=== PATIENT | female | born 1935 | race Caucasian/White ===

== ENCOUNTER 2016-11-13 13:24 | Outpatient (CLI) | payer MEDICARE, BC ==
[~2016-11-13] VITALS: Ht 157.5 cm; Wt 65.9 kg
[~2016-11-13 13:24] MED LIST: AMANTADINE HCL100 M1 PO; AMANTADINE100 MG PEG; APLISOL5 TU/0.1 M ID; ASPI325T6 PO; ASPIRIN 32325 MG/TAB PO; CALTRATE 600 +1 TAB PO; CELEXA; CELEXA 20MG20 MG/TAB PO; CELEXA10 MG/5 ML PEG; CELEXA20 MG PEG; CELEXA20 MG PO; CLARITIN 1010 MG/TAB PO; COLACE 100100 MG/CAP PO; COLACE100 MG PO; COUMADIN; DEBROX; DULCOLAX10 MG RC; FORTAMET1000 MG PO; FOSAMAX PO; IMODIUM AD1 MG/5 ML PO; KEPPRA100 MG/ML PEG; KEPPRA500 MG PO; LABETALOL100 MG PO; LANTUS100 U/ML SQ; LEVOTHYROXIN0.125 MG PO; LIPITOR 10MG10 MG PO; MACROBID 1100 MG/CAP PO; MILK OF MA400 MG/51 PO; MYLANTA 150 ML150 M1 PO; MYLANTA 150 ML150 ML PO; NEXIUM40 MG PO; NITROQUICK0.4 MG SL; NITROSTAT0.4 MG SL; PHENERGAN 25 TA25 MG; PROMETHAZINE12.5 M5 PEG; PROTONIX 40MG T40 MG PO; PROTONIX40 MG PO; RECLAST5 MG/100 M IV; REGLAN 5MG T5 MG/TAB PEG; REGLAN 5MG T5 MG/TAB PO; REGLAN5 MG/ML PEG; SYNTHROID PO; SYNTHROID0.1 MG PO; SYNTHROID0.1 MG/TAB PO; SYNTHROID0.125 MG PO; TRANDATE100 MG PO; TRANDATE5 MG/ML IV; TYLENOL 325MG325 MG PO; TYLENOL SU650 MG/SUP RC; VITAMIN D31000 IU PO; VITAMIN D32000 IU PO; ZOCOR 20MG20 MG PO; ZOFRAN ODT4 MG PEG; ZOFRAN4 M1 PEG; ZOFRAN4 M1 PO; antidepressant
[2016-11-13 13:57] VITALS: BP 104/43; PULSE 65; TEMP 97.4
== END 2016-11-13 14:32 | disposition home or self-care (01) ==
LOC: EUO 13:24
DX: M81.8 Other osteoporosis without current pathological fracture (principal)
CPT/HCPCS: J3489

== ENCOUNTER → 2017-02-17 | Outpatient (CLI) | payer MEDICARE, BC | LOC: COL.VAS 12:07 | DX: M79.662 Pain in left lower leg (principal) ==

== ENCOUNTER → 2021-03-12 | Outpatient (CLI) | payer MEDICARE, BC ==
[~2021-03-12] MED LIST changes: +CORDARONE200 MG/TAB PO; +LIPITOR 40MG TA40 MG PO; +NAMENDA5 MG PO
[2021-03-12 15:25] LABS: COLLECTION METHOD CATHETER
[2021-03-12 15:27] LABS: HEMATOCRIT 43.8 % (37.0-47.0); MEAN CELL VOLUME 96 fl (80.0-100.0); MEAN CORPUSCULAR HEMOGLOBIN 31 pg (27.0-31.0); MEAN CORPUSCULAR HGB CONC 32 g/dl (33.0-37.0); MEAN PLATELET VOLUME 11.7 fl (7.4-10.4); PLATELET COUNT 192 K/mm3 (130-400); RED BLOOD COUNT 4.56 M/mm3 (4.10-5.30); REDCELL DISTRIBUTION WIDTH-CV 13.3 % (11.5-14.5)
[2021-03-12 15:38] LABS: MUCOUS Present /lpf; PH 5 (5-8); URINE APPEARANCE Hazy; URINE BACTERIA Rare /hpf; URINE BILIRUBIN Negative (NEGATIVE); URINE BLOOD Negative (NEGATIVE); URINE COLOR Yellow; URINE GLUCOSE Negative (NEGATIVE); URINE KETONE Negative (NEGATIVE); URINE LEUKOCYTE ESTERASE Trace (NEGATIVE); URINE NITRATE Negative (NEGATIVE); URINE PROTEIN(semi-quant) Negative (NEGATIVE); URINE RBC 0-2 /hpf
[2021-03-12 15:46] LABS: ALBUMIN 3.7 gm/dL (3.5-5.0); BILIRUBIN,TOTAL 0.4 mg/dL (0.0-1.0); CALCIUM 9.2 mg/dL (8.4-10.2); CREATININE, serum 0.9 (0.52-1.25); TOTAL PROTEIN 7.3 gm/dL (6.4-8.2)
== END ==
LOC: COL.LAB 14:24
PROVIDERS: Family Medicine
DX: R53.1 Weakness (principal); R53.83 Other fatigue

== ENCOUNTER → 2021-07-26 | Outpatient (CLI) | payer MEDICARE, BC ==
[~2021-07-26] MED LIST changes: +MASON NATURAL2000 IU PO; +MELATONIN5 M1 SL; +NAMENDA 10MG TA10 MG PO; +SYNTHROID0.075 MG/T PO; +SYNTHROID0.088 MG/T PO
[2021-07-26 16:17] LABS: BASO # 0.1 K/mm3 (0.0-0.2); EOS # 0.3 K/mm3 (0.0-0.7); EOS % 3.6 % (0-4.0); GRAN # 4.9 K/mm3 (1.4-6.5); GRAN % 60.8 % (42.2-75.2); HEMATOCRIT 45.5 % (37.0-47.0); HEMOGLOBIN 14.8 g/dl (12.5-16.0); LYMPH % 24.9 % (20.0-51.0); MEAN CELL VOLUME 93 fl (80.0-100.0); MEAN CORPUSCULAR HEMOGLOBIN 30 pg (27.0-31.0); MEAN CORPUSCULAR HGB CONC 33 g/dl (33.0-37.0); MEAN PLATELET VOLUME 11.6 fl (7.4-10.4); MONO # 0.7 K/mm3 (0.1-0.6); MONO % 9.1 % (1.7-9.3); PLATELET COUNT 207 K/mm3 (130-400); RED BLOOD COUNT 4.92 M/mm3 (4.10-5.30); REDCELL DISTRIBUTION WIDTH-CV 13.8 % (11.5-14.5)
[2021-07-26 16:33] LABS: ALANINE AMINOTRANSFERASE 18 U/L (0-55); ALBUMIN 3.5 gm/dL (3.4-4.8); ALKALINE PHOSPHATASE 70 U/L (40-150); ANION GAP 11 mmol/L (7-16); AST,SGOT 17 U/L (5-34); BILIRUBIN,TOTAL 0.5 mg/dL (0.2-1.2); BLOOD UREA NITROGEN 14 mg/dL (10-20); CALCIUM 9.3 mg/dL (8.4-10.2); CARBON DIOXIDE 27 mmol/L (23-31); CHLORIDE 102 mmol/L (98-107); CREATININE, serum 0.93 mg/dL (0.57-1.11); GLUCOSE 85 mg/dL (70-99); POTASSIUM 4.6 mmol/L (3.5-4.5); SODIUM 140 mmol/L (136-145)
[2021-07-26 16:52] LABS: THYROID STIMULATING HORMONE 7.738 uIU/mL (0.350-4.940)
[2021-07-26 16:53] LABS: TROPONIN-I < 0.010 ng/mL (0.00-0.033)
== END ==
LOC: COL.RAD 15:00
PROVIDERS: Internal Medicine
DX: S06.2X9A Diffuse traumatic brain injury with loss of consciousness of unspecified duration, initial encounter (principal); G31.9 Degenerative disease of nervous system, unspecified; Z98.890 Other specified postprocedural states; Z98.2 Presence of cerebrospinal fluid drainage device

== ENCOUNTER 2021-09-08 11:34 | Observation (INO) | payer MEDICARE, BC ==
[~2021-09-08] VITALS: Ht 154.9 cm; Wt 57.2 kg
[~2021-09-08 11:34] MED LIST changes: -MASON NATURAL2000 IU PO; -MELATONIN5 M1 SL; -NAMENDA 10MG TA10 MG PO; -SYNTHROID0.075 MG/T PO; -SYNTHROID0.088 MG/T PO
[2021-09-08 12:27] LABS: BASO # 0.1 K/mm3 (0.0-0.2); BASO % 0.7 % (0.0-2.0); EOS # 0.1 K/mm3 (0.0-0.7); EOS % 1.1 % (0-4.0); GRAN # 5.3 K/mm3 (1.4-6.5); GRAN % 73.8 % (42.2-75.2); HEMOGLOBIN 14.6 g/dl (12.5-16.0); LYMPH # 1.1 K/mm3 (1.2-3.4); LYMPH % 14.9 % (20.0-51.0); MEAN CELL VOLUME 92 fl (80.0-100.0); MEAN CORPUSCULAR HEMOGLOBIN 31 pg (27.0-31.0); MEAN CORPUSCULAR HGB CONC 33 g/dl (33.0-37.0); MEAN PLATELET VOLUME 11.7 fl (7.4-10.4); MONO # 0.7 K/mm3 (0.1-0.6); MONO % 9.1 % (1.7-9.3); PLATELET COUNT 189 K/mm3 (130-400); RED BLOOD COUNT 4.76 M/mm3 (4.10-5.30); REDCELL DISTRIBUTION WIDTH-CV 13.6 % (11.5-14.5)
[2021-09-08 12:43] LABS: ALBUMIN 3.4 gm/dL (3.4-4.8); BILIRUBIN,TOTAL 0.7 mg/dL (0.2-1.2); CALCIUM 8.9 mg/dL (8.4-10.2); CREATININE, serum 0.86 mg/dL (0.57-1.11); POTASSIUM 3.7 mmol/L (3.5-4.5); TOTAL PROTEIN 6.7 gm/dL (6.2-8.1)
[2021-09-08 13:24] LABS: COLLECTION METHOD CLEAN CATCH
[2021-09-08 13:36] LABS: MUCOUS Present (NOT PRESENT); PH 5 (5-8); SQUAMOUS EPITHELIAL 0-2 /hpf (0-10); URINE APPEARANCE Clear (CLEAR/HAZY); URINE BACTERIA None Seen (NONE SEEN); URINE BILIRUBIN Negative (NEGATIVE); URINE BLOOD 2+ (NEGATIVE); URINE COLOR Yellow (YELLOW); URINE GLUCOSE Negative (NEGATIVE); URINE KETONE Negative (NEGATIVE); URINE LEUKOCYTE ESTERASE Negative (NEGATIVE); URINE NITRATE Negative (NEGATIVE); URINE PROTEIN(semi-quant) Negative (NEGATIVE)
[2021-09-08] MEDS ORDERED: CORDARONE200 MG/TAB PO (17:59)
[2021-09-08] MEDS ORDERED: SYNTHROID0.075 MG/T PO (18:01)
[2021-09-08] MEDS ORDERED: NAMENDA 10MG TA10 MG PO (18:01)
[2021-09-08] MEDS ORDERED: SYNTHROID0.088 MG/T PO (18:02)
[2021-09-08] MEDS ORDERED: MASON NATURAL2000 IU PO (18:02)
[2021-09-08] MEDS ORDERED: MELATONIN5 M1 SL (18:04)
[2021-09-08 21:55] VITALS: BP 171/63; PULSE 69; TEMP 98.1
--- NOTE | 2021-09-08 23:07 | NUR ---
PT ARRIVES TO MEDICAL FLOOR AT ABOUT 2140 BY ED STAFF VIA BED WITH BEDSIDE. PT A/OX2, PLESANTLY CONFUSED AND DISORIENTED AND ABLE TO FOLLOW SIMPLE COMMANDS AND WAS ASSISTING STAFF IN BED TRANSFER AND WAS ABLE TO TURN FROM SIDE TO SIDE WITH ASSISTANCE. PT REMAINS WEAK WITH AN UNSTEADY GAIT. PT NPO AND N.S INFUSING AT 75CC/HR TO RFA IV. ASSESMENT COMPLETE. PTS REMAINED BEDSIDE TO COMPLETE ADMISSION WITH THIS NURSE. THIS NURSE CONDUCTED MED REC WITH PT'S AND THIS NURSE REMINDED HIM TO BRING MED LIST TO PLACE IN PTS CHART. PT VERBALIZED UNDERSTANDING. PT HYPERTENSIVE, AFEBRILE AND REPORTS NO PAIN. PT ORIENTED TO ROOM, HOSPITAL POLICY. POC DISCUSSED WITH PTS . PTS VERBALIZED UNDERSTANDING. ALL QUESTIONS/CONCERNS ANSWERED AT THIS TIME. BED LOW. BED ALARM ON. PT WEARING YELLOW GOWN AND VISIBLE TO NURSES STATION. ALL NEEDS MET AT THIS TIME. NURSE WILL CONTINUE TO MONITOR.
[2021-09-09 05:42] VITALS: BP 165/58; PULSE 64; TEMP 98.5
[2021-09-09 06:41] VITALS: BP 165/58; PULSE 64; TEMP 98.5
[2021-09-09 06:44] LABS: BASO % 0.5 % (0.0-2.0); EOS # 0.1 K/mm3 (0.0-0.7); EOS % 1.4 % (0-4.0); GRAN # 6.1 K/mm3 (1.4-6.5); GRAN % 75.3 % (42.2-75.2); HEMATOCRIT 45.2 % (37.0-47.0); LYMPH # 1.1 K/mm3 (1.2-3.4); LYMPH % 13.4 % (20.0-51.0); MEAN CELL VOLUME 93 fl (80.0-100.0); MEAN CORPUSCULAR HEMOGLOBIN 31 pg (27.0-31.0); MEAN CORPUSCULAR HGB CONC 33 g/dl (33.0-37.0); MEAN PLATELET VOLUME 12.1 fl (7.4-10.4); MONO # 0.7 K/mm3 (0.1-0.6); PLATELET COUNT 194 K/mm3 (130-400); RED BLOOD COUNT 4.88 M/mm3 (4.10-5.30); REDCELL DISTRIBUTION WIDTH-CV 13.4 % (11.5-14.5)
--- NOTE | 2021-09-09 06:46 | NUR ---
ALL NEEDS MET THIS NIGHT. N/S CONTNUES TO INFUSE AT 75CC/HR TO RFA IV. PT IN YELLOW GOWN. BED ALARM ON. CALL LIGHT [facility]. PT VISIBLE TO NURSES STATION.
--- NOTE | 2021-09-09 07:14 | NUR ---
Patient laying in bed, awake and alert to name, but confused. VSS. IV CDI, fluids infusing. Denies pain and is trying to get out of bed. Nursing staff assisting patient back into bed and reorienting the patient. Call light within reach. Bed alarm on. Door left open and room close to nurses station
[2021-09-09 07:16] LABS: CALCIUM 8.7 mg/dL (8.4-10.2); CREATININE, serum 0.72 mg/dL (0.57-1.11); POTASSIUM 3.3 mmol/L (3.5-4.5)
[2021-09-09 13:00] VITALS: BP 138/79; PULSE 73; TEMP 98
--- NOTE | 2021-09-09 13:22 | NUR ---
Plan is home with . SW met with patient and in room about care. Patient reports that can talk about her care. is Kuldip . reports that the patient uses a walker and wheelchair and he supports her with a gait belt. reports that they have had a ramp installed outsife of there home for easier access. report Dr. Rachel Estrada as PCP no other specialist. Patient reports that they have good stewart coming to the home 2 days a week to support care. reports that he does the transportation. Educated on services with case management. Will continue to follow for supports.
[2021-09-09 16:56] VITALS: BP 140/75; PULSE 71; TEMP 98.3
--- NOTE | 2021-09-09 17:58 | NUR ---
tried to feed the patient, but patient is not waking up enough and keeping eyes open to be safe to eat. Opens eyes when the nurse calls her name, but then closes eyes. VSS. IV CDI. Patient incontinent of urine. Bed change, brief change and patient repositioned for comfort. Patient has been confused throughout the whole shift. Son has been at the bedside earlier in the day. No further needs expressed. Call light within reach. Bed alarm on. Room close to the nurses station
--- NOTE | 2021-09-09 21:05 | NUR ---
Patient resting in bed with eyes closed upon enter the room. Patient easily awake with verbal stimulation. Patient awake and alert with calling her name. Crushed medication and mixed in vanilla pudding. Patient took medication without difficulty. Assist patient with dinner. Patient ate 50% of dinner. Call light in reach. Bed alarms on. Will continue to monitor.
[2021-09-09 21:59] VITALS: BP 119/79; PULSE 67; TEMP 97.9
[2021-09-10] VITALS (7 sets, daily range): BP systolic 112–155; BP diastolic 51–63; PULSE 66–70; TEMP 97.4–98.3
[2021-09-10 07:59] LABS: CALCIUM 8.1 mg/dL (8.4-10.2); CREATININE, serum 0.79 mg/dL (0.57-1.11); MAGNESIUM 1.9 mg/dL (1.6-2.6)
--- NOTE | 2021-09-10 09:30 | NUR ---
PT ALERT, UNRESPONSIVE TO VERBAL CUES. WILL OPEN EYES TO NAME AND NOD TO ANSWER QUESTIONS ON LOCATION OF PAIN. NO VOCALIZATION OR WORDS USED. PT CONCERNED WITH PT NO LONGER SWALLOWING. THIS RN ATTEMPTED TRIAL OF APPLESAUCE PRIOR TO MEDICATION ADMINISTRATION, COUGH NOTED. NO MEDICATIONS GIVEN FOR POTENTIAL ASPIRATION RISK. NOTIFIED MILLIE GALEAS OF PT ASPIRATION. SPEECH THERAPY TO SEE PT. PT NEURO CHECK PERFORMED TO BEST OF ABILITY, PT DID NOT PULL AWAY FROM PAIN, BUT COULD NOD WITH RECOGNIZING TOUCH. PT HAS INSPIRATORY WHEEZE NOTED IN RIGHT LOWER LOBE, DIMINISHED UPPER LOBES BILATERALLY. PT HAD DIMINISHED LEFT LOWER LOBE. PT HAS NON-PITTING EDEMA IN ALL EXTREMITIES. AT BEDSIDE ABLE TO EXPRESS NEEDS AND CONCERNS.
--- NOTE | 2021-09-10 11:05 | NUR ---
Palliative Care Note Met in patient room with patient's , Kuldip. He is scheduled to tour the [facility] today at 2pm. Patient is sleeping throughout our meeting so we only really got to interact with Kuldip. 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 He states prior to this recent decline, they have been able to manage well but he understands she may not get better and that he needs more help now that she is getting weaker. We discussed hospice services with Kuldip, specifically that it is a revokable service that Milka can graduate from if she were to get stronger or improved. He is concerned about her oral intake but speech therapy is ordered and should answer his questions. We will touch base with him again after his tour.
--- NOTE | 2021-09-10 11:36 | NUR ---
Initial visit attempt; Patient resting, Continuity Manager spoke briefly with Milka' and let him know of the availability of [facility]. He was using the telephone. Continuity Manager will follow up.
--- NOTE | 2021-09-10 11:58 | NUR ---
cue worker collaborated with palliative care RN Jen and RN Alcira in addition to the patient's Kuldip about the patient going to hospice.Patient's is in favor with the patient going to [facility] and has arranged for a tour at 1400 today. [facility] is accepting of me faxing over a referral to [facility]. Referral faxed and spoke with the hospitalist to address patient's code status.
--- NOTE | 2021-09-10 12:47 | NUR ---
NOTIFIED ADAL OF PT SPO2 90-91%. NO FURTHER ORDERS RECEIVED.
--- NOTE | 2021-09-10 14:45 | NUR ---
SOME IMPROVEMENT NOTED IN PT WITH 1200 NEURO CHECK. PT ABLE TO SMILE, SAY NAME, AND VERBALIZED NO PAIN.
--- NOTE | 2021-09-10 15:56 | NUR ---
Spoke with Martínez at [facility] who agrees to accept the patient to the hospice house. Martínez notes that the earliest admit dates would be Wednesday 09/12. Collaborated with MAAME Li and hospitalist team in addition to the patient's . All are in agreement that the patient dc to the hospice house. Patient's is overwhelmed with being the patient's caregiver 28/04 and feels as if the patient going home with hospice services is not an option at this point. Discharge plan: [facility] fri
--- NOTE | 2021-09-10 16:02 | NUR ---
PT BLOOD PRESSURE ELEVATED, RECHECKED AT THIS TIME. 149/52
--- NOTE | 2021-09-10 17:17 | NUR ---
Pt continuing on plan of care. Pt vital signs remained stable this shift, neuro checks performed per orders. Some improvement noted with alertness, pt able to state name for 1200 and 1600 checks. Pt at bedside, expressed concerns with pt swallowing. Pt had speech evaluation today, remained NPO for safety after consultation. Pt family able to call for needs, updated to best of ability this shift.
--- NOTE | 2021-09-10 19:00 | NUR ---
NOTIFIED MILLIE WINKLER OF PT HAVING ENLARGED LYMPH NODES ON LEFT CERVICAL CHAIN. PT REMAINED AFEBRILE THIS SHIFT.
--- NOTE | 2021-09-10 21:30 | NUR ---
Patient is resting in bed, alert but not oriented. Slured speach. VSS but HTN. Able to answer yes no questions. Assessment completed, No further needs at this time. Call light within reach.
[2021-09-11 04:48] VITALS: BP 150/56; PULSE 67; TEMP 98.1
--- NOTE | 2021-09-11 06:11 | NUR ---
Patient has been stable along the night. She had one incontinent episode. Hygiene provided. Fluids running at 725 ml/hr. Shift report will be given to day RN.
--- NOTE | 2021-09-11 07:11 | NUR ---
NOTIFIED ADAL OF NO LABS FOR PT. CONFIRMED NOT NEEDED THIS AM.
[2021-09-11 07:32] VITALS: BP 138/58; PULSE 68; TEMP 97.7
--- NOTE | 2021-09-11 08:00 | NUR ---
PT ALERT, ORIENTED TO SELF ONLY. PT DENIES PAIN. PT LUNGS CLEAR UPPER LOBES, DIMINISHED BASES BILATERALLY. PT HAS 2+ PULSES IN ALL EXTREMITIES. PT CAP REFILL <3S. PT NEURO CHECK PERFORMED TO BEST OF ABILITY. PT HAS MUMBLED SPEECH, DIFFICULT TO COMPREHEND. PT AT BEDSIDE. PT INCONTINENT OF URINE, CLEANED WITH WIPES AND NEW GUILLE, DEPEND PLACED.
--- NOTE | 2021-09-11 09:59 | NUR ---
Initial visit attempt; Associate Director Data & Analytics spoke with Milka' inquiring how she could help. He responded by thanking Associate Director Data & Analytics for offering and said there is little to be done at this time but will contact Associate Director Data & Analytics when he sees the need. Associate Director Data & Analytics will continue to look in on him and Milka.
--- NOTE | 2021-09-11 11:06 | NUR ---
Comfort quilt provided and comfort basket ordered. Mr Rios reports that it is hard for him to think of her not coming home but feels that he has made a good decision. They have been for 67 years and I reassured him that he had taken very good care of her.
[2021-09-11 12:13] VITALS: BP 1258/53; BP 128/53; PULSE 65; TEMP 97.3
--- NOTE | 2021-09-11 13:07 | NUR ---
DISCUSSED WITH DR. MUNOZ, NEURO CHECKS NO LONGER REQUIRED.
--- NOTE | 2021-09-11 16:58 | NUR ---
PT TRANSITIONED TO COMFORT CARES THIS SHIFT. EDUCATION PROVIDED TO FAMILY TO BEST OF ABILITY. PT AT BEDSIDE. PT DENIED PAIN. INCONTINENT OF URINE, CLEANED WITH WIPES AND NEW DEPEND PLACED. PT UNABLE TO USE CALL LIGHT, CALLS FOR NEEDS.
--- NOTE | 2021-09-11 20:30 | NUR ---
Patient is resting in bed on her left side. smiles in response to speech, alert but not oriented, do not answers questions. Assessment completed. No other needs at this time. Call light within reach.
[2021-09-12 00:47] VITALS: BP 146/60; PULSE 64; TEMP 98.3
--- NOTE | 2021-09-12 05:51 | NUR ---
Patient has had a calm night. She just had an incontinent episode. Hygiene provided. Report will be given to day RN.
[2021-09-12] MEDS ORDERED: ATIVAN 1MG T1 MG/TAB PO (09:15)
[2021-09-12] MEDS ORDERED: ZOFRAN ODT4 MG PO (09:15)
[2021-09-12] MEDS ORDERED: TRANSDERM-0.5 MG/21 TD (09:16)
--- NOTE | 2021-09-12 09:16 | NUR ---
Pt laying in bed upon entry, at bedside. Pt is alert, answers questions appropriately. She currently denies any pain. Pt repositioned and mouth swabs, ice chips provided. No needs at this time. Call light within reach.
[2021-09-12] MEDS ORDERED: ROXANOL 20MG20 MG/ML SL (09:21)
--- NOTE | 2021-09-12 09:29 | NUR ---
KYLEIGH contacted Martínez at [facility] and confirmed that they are good with taking the patient today and request a 1230 transport time. SW updated the clinical team and the patient's , Kuldip. They were all in agreement to the plan. The patient is to discharge today, 09/12, to [facility]. Transportation was scheduled at 1230, via [facility]. KYLEIGH informed the patient's and her RN of the time. No additional needs at this time.
--- NOTE | 2021-09-12 11:42 | NUR ---
Bilateral IV's to RFA dc'd catheter tips intact. Pt awaiting hospice to pick him up, pt's at bedside.
--- NOTE | 2021-09-12 12:32 | NUR ---
Pt left via EMS at this time.
== END 2021-09-12 12:33 | disposition hospice, home (50) ==
LOC: COL.ER 11:34 → MEDICAL 15:15
PROVIDERS: Family Medicine; Physician Assistant; ADMIT Internal Medicine
DX: E86.0 Dehydration (principal); I67.9 Cerebrovascular disease, unspecified; G81.90 Hemiplegia, unspecified affecting unspecified side; I48.91 Unspecified atrial fibrillation; E87.6 Hypokalemia; E03.9 Hypothyroidism, unspecified; F32.A Depression, unspecified; F03.90 Unspecified dementia, unspecified severity, without behavioral disturbance, psychotic disturbance, mood disturbance, and anxiety; Z20.822 Contact with and (suspected) exposure to COVID-19; Z79.899 Other long term (current) drug therapy; G40.909 Epilepsy, unspecified, not intractable, without status epilepticus
CPT/HCPCS: G0378; J0696; J3480; J7030